=== PATIENT | male | born 1950 | race Caucasian/White ===

== ENCOUNTER → 2016-09-14 | Outpatient (CLI) | payer MEDICARE, BC ==
--- NOTE | 2016-09-14 14:41 | RADIOLOGY REPORT (SQ) ---
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 TECHNIQUE: Multiplanar imaging includes noncontrasted T1, T2, FLAIR, diffusion with ADC map and post gadolinium contrast T1 sequences. Images stored on PACS. Additional thin section axial fat-sat T2, a xial and coronal pre and postcontrast T1 weighted images through the orbits and brainstem. CONTRAST TYPE AND DOSE: 20 mL Multihance. RENAL FUNCTION: Creatinine 1.0 LIMITATIONS: None. FINDINGS: ANATOMY: No developmental anomalies. Normal vascular flow voids. Pituitary fossa normal. CSF SPACES: Normal in size and contour. No hemorrhage. CEREBRUM: Sulci and gyri normal in size and contour. Normal white matter signal on FLAIR imaging. No evidence of hemorrhage, mass, or extraaxial fluid collection. No abnormal enhancement post contrast. POSTERIOR FOSSA: No signal alteration. No hemorrhage. No edema, masses, or mass effect. Internal genoveva tory canals, cerebellopontine angles, mastoids normal. No enhancing lesions. No abnormal enhancement post contrast. DIFFUSION IMAGING: Negative for acute or subacute infarction. ORBITS: No masses. Globes normal. PARANASAL SINUSES: No fluid levels. Right maxillary sinus mucus or serous retention cyst. OTHER: Left parietal metallic scalp artifact. IMPRESSION: NORMAL MRI OF THE BRAIN AND ORBITS WITHOUT AND WITH INTRAVENOUS GADOLINIUM CONTRAST. TECHNICAL DOCUMENTATION: JOB ID: [id number] [employer]- All Rights Reserved
== END ==
LOC: RAD 07:56
PROVIDERS: ATTEND Internal Medicine
DX: H53.2 Diplopia (principal); H50.22 Vertical strabismus, left eye
CPT/HCPCS: 82565; 70553; A9577

== ENCOUNTER → 2017-05-30 | Outpatient (CLI) | payer MEDICARE, BC ==
--- NOTE | 2017-05-30 10:34 | RADIOLOGY REPORT (SQ) ---
EXAM DESCRIPTION: U/S ABDOMEN COMPLETE W/O DOP COMPLETED DATE/TIME: 05/30/2017 9:42 am REASON FOR STUDY: HEPATOMEGALY, NEC (R16.0), LUQ PAIN (R10.12) R16.0 HEPATOMEGALY, NOT ELSEWHERE CL ASSIFIED COMPARISON: None. TECHNIQUE: Dynamic and static grayscale images acquired of the abdomen and recorded on PACS. Additio nal selected color Doppler and spectral images recorded. LIMITATIONS: None. FINDINGS: PANCREAS: Midline pancreas unremarkable LIVER: Liver is normal size, 15 to 16 cm in greatest craniocaudad length. There is mild diffuse incr eased echogenicity from diffuse hepatocellular disease or fatty infiltration. No focal masses. LIVER VASCULATURE: Normal directional flow of the main portal vein and hepatic veins. GALLBLADDER: No stones. Normal wall thickness. No pericholecystic fluid. ULTRASOUND-DETECTED GOLD'S SIGN: Negative. INTRAHEPATIC DUCTS AND COMMON DUCT: CBD and intrahepatic ducts normal caliber. No filling defects. INFERIOR VENA CAVA: Normal flow. AORTA: No aneurysm. RIGHT KIDNEY: Normal size, 9.6 cm in length. Normal echogenicity. No solid or suspicious masses. No hydronephrosis. No calcifications. LEFT KIDNEY: Normal size, 10.3 cm in length. Normal echogenicity. No solid masses. 4.5 cm septa bea cyst left lower pole kidney. No hydronephrosis. No calcifications. SPLEEN: Normal size, 10 cm in length. No solid masses. PERITONEAL AND PLEURAL SPACES: No ascites or effusions. OTHER: No other significant finding. IMPRESSION: Normal size liver and spleen Mild increased echogenicity of the liver could be seen in diffuse hepatocellular disease 4.5 cm cyst left lower pole kidney with thin septations. This is likely a benign finding. 1 year fo llow-up recommended TECHNICAL DOCUMENTATION: JOB ID: [id number] [employer]- All Rights Reserved Reading location - IP/workstation name: [email or web address]
== END ==
LOC: RAD 07:40
PROVIDERS: ATTEND Internal Medicine Gastroenterology
DX: R16.0 Hepatomegaly, not elsewhere classified (principal); R10.12 Left upper quadrant pain
CPT/HCPCS: 76700

== ENCOUNTER → 2018-08-19 | Outpatient (CLI) | payer MEDICARE, BC ==
--- NOTE | 2018-08-19 16:12 | RADIOLOGY REPORT (SQ) ---
EXAM DESCRIPTION: U/S RETROPERITON (RENAL/AORTA) COMPLETED DATE/TIME: 08/19/2018 3:10 pm REASON FOR STUDY: N28.1 CYST OF KIDNEY, ACQUIRED N28.1 CYST OF KIDNEY, ACQUIRED COMPARISON: 05/30/2017 TECHNIQUE: Dynamic and static grayscale images acquired of the kidneys and bladder and recorded on P ACS. Additional selected color Doppler and spectral images recorded. LIMITATIONS: None. FINDINGS: RIGHT KIDNEY: Normal size. Normal echogenicity. No solid or suspicious masses. No hydronep hrosis. No calcifications. LEFT KIDNEY: There are 2 cysts, largest lower pole 4.2 x 3.7 x 3.5 cm. No solid mass. No hydroneph rosis. BLADDER: No masses. OTHER FINDINGS: No other significant finding. IMPRESSION: Benign left renal cyst. TECHNICAL DOCUMENTATION: JOB ID: [id number] [employer]- All Rights Reserved Reading location - IP/workstation name: [email or web address]
== END ==
LOC: RAD 14:41
PROVIDERS: ATTEND Internal Medicine Gastroenterology
DX: N28.1 Cyst of kidney, acquired (principal)
CPT/HCPCS: 76770